=== PATIENT | female | born 1955 | race Caucasian/White ===

== ENCOUNTER 2016-08-19 08:56 | Emergency (ER) | payer MEDICARE, OTHER ==
[2016-08-19 09:15] VITALS: BP 117/52
--- NOTE | 2016-08-19 09:16 | ED Physician Documentation ---
General Adult - HISTORIAN Historian: patient - HPI Stated Complaint: cogh Chief Complaint: General Adult Onset: days ago (7) Timing: still present Severity: moderate Further Comments: yes (Pt is a 60 yo female with cough x 1 week. Pt had fever several days ago. Cough is productive. No ear pain.) - ROS CONST: chills, other (malaise) EYES/ENT: sore throat CVS/RESP: cough GI/: none MS/SKIN/LYMPH: none - PAST HX Past History: other (Depression, Thyroid dz) Surgeries/Procedures: hysterectomy, other (orthopedic) Allergies/Adverse Reactions: Allergies Allergy/AdvReac Type Severity Reaction Status Date / Time Penicillins Allergy Severe Anaphylaxis Verified 08/19/16 09:09 Sulfa (Sulfonamide Allergy Intermediate Rash Verified 08/19/16 09:09 Antibiotics) Home Medications: Ambulatory Orders Medication Instructions Recorded Levothyroxine Sodium [Synthroid] 100 mcg PO D 06/30/16 Sertraline HCl [Zoloft] 100 mg PO D 06/30/16 Zolpidem Tartrate [Ambien] 10 mg PO PRN PRN 06/30/16 - SOCIAL HX Smoking History: cigarettes - FAMILY HX Family History: No - VITAL SIGNS Vital Signs: Vital Signs Temp Pulse Resp BP Pulse Ox 94/62 06/30/16 11:14 - REVIEWED ASSESSMENTS Nursing Assessment Reviewed: Yes Vitals Reviewed: Yes Progress - Progress Progress: Rapid strep - pos Inf A & B - neg Azithromycin 500 mg po in ER Rx Azithromycin 250 mg po qd x next 5 days. Rx Robitussin AC. 10 ml po q 4-6h prn. Disp 240 cc. ED Results Lab/Radiology - Orders Orders: ED Orders Category Date Time Status CHEST 2 VIEW [CHEST P.A.&LAT 2 VIEWS] [RAD] Stat Exams 08/19/16 Ordered GRP A STREP SCREEN Stat Lab 08/19/16 Ordered INFLUENZA A&B Stat Lab 08/19/16 Uncollected General Adult Physical Exam - PHYSICAL EXAM GENERAL APPEARANCE: mild distress EENT: TM's nml, pharyngeal erythema NECK: normal inspection, supple RESPIRATORY: no resp distress, chest non-tender, breath sounds normal, other ( cough) CVS: reg rate & rhythm, heart sounds normal ABDOMEN: soft, no organomegaly, normal bowel sounds BACK: normal inspection, no CVA tenderness SKIN: warm/dry, normal color EXTREMITIES: non-tender, normal range of motion, no evidence of injury NEURO: oriented X3, motor nml, sensation nml Discharge Clincal Impression: Cough, Strep pharyngitis Referrals: Angie Medel MD [Primary Care Provider] - Home Medications: Ambulatory Orders Levothyroxine Sodium [Synthroid] 100 mcg PO D 06/30/16 Sertraline HCl [Zoloft] 100 mg PO D 06/30/16 Zolpidem Tartrate [Ambien] 10 mg PO PRN PRN 06/30/16 Condition: Good Disposition: 01 HOME, SELF-CARE Decision to Admit: NO Decision Time: 09:44
[2016-08-19] MEDS ORDERED: AZITHROMYCIN 250 MG TABLET PO ONE (09:42)
--- NOTE | 2016-08-19 09:53 | Diagnostic Imaging Report ---
[facility] [address] [facility].[address] 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 Findings: Examination of the chest in PA and lateral views with comparison to examination of 03/14/2015 demonstrates the lungs to be hyperinflated but clear. Cardiac silhouette is prominent and the aorta is atherosclerotic. Mild degenerative changes are seen in the thoracic vertebrae. Impression: 1. Hyperinflation. 2. Cardiomegaly and aortic atherosclerosis. 3. No active disease. Electronically signed on Aug 19, 2016 9:33:50 AM WELL DRILL OPERATOR CABLE TOOL by: Stanley AMADOR
== END 2016-08-19 09:53 | disposition home or self-care (01) ==
LOC: ED 08:56
DX: J02.0 Streptococcal pharyngitis (principal); R05 Cough
CPT/HCPCS: 71020; 87400; 87880; 99283

== ENCOUNTER 2017-05-18 09:10 | Emergency (ER) | payer MEDICARE, OTHER ==
--- NOTE | 2017-05-18 09:26 | ED Physician Documentation ---
Upper Respiratory Symptoms - HISTORIAN Historian: patient - HPI Stated Complaint: cough histroy of COPD Chief Complaint: Cough/ Upper Respiratory Onset: other (over a week ) Duration: constant Context: denies: recent foreign travel, insect bite(s), tick(s), recent chemotherapy, multiple patients Severity: moderate Associated Symptoms: fever, chills, sweating, runny nose, sinus pain, sinus drainage, sore throat, chest pain, productive cough, shortness of breath, hurts to breathe. denies: earache, hoarseness, allergy, headache Worsened by Deep Breath: Yes Further Comments: no - ROS CONST/EYES: denies: weakness, eye redness, eye itching CVS/RESP: chest pain, shortness of breath. denies: palpitations LYMPH: denies: leg swelling, swollen glands, ankle swelling GI/: denies: abdominal pain, problems urinating NEURO/PSYCH: dizziness (with continued cough ). denies: fainting - PAST HX Lung Disease: COPD PE Risk Factors: denies: hypertension, hx DVT, cast, cancer, recent surgery, leg swelling, bedridden, paralysis, hx of PE Other History: other (hypothyroidism ) Surgeries/Procedures: other ("10") Immunizations: referred to PCP Allergies/Adverse Reactions: Allergies Allergy/AdvReac Type Severity Reaction Status Date / Time Penicillins Allergy Severe Anaphylaxis Verified 05/18/17 09:32 Sulfa (Sulfonamide Allergy Intermediate Rash Verified 05/18/17 09:32 Antibiotics) Home Medications: Ambulatory Orders Medication Instructions Recorded Levothyroxine Sodium [Synthroid] 100 mcg PO D 06/30/16 Sertraline HCl [Zoloft] 100 mg PO D 06/30/16 Zolpidem Tartrate [Ambien] 10 mg PO PRN PRN 06/30/16 Azithromycin [Zithromax] 250 mg PO DAILY 5 Days #6 tablet 05/18/17 Methylprednisolone [Medrol] 4 mg PO 1T 6 Days #1 tab.ds.pk 05/18/17 - SOCIAL HX Smoking History: cigarettes Alcohol Use: none Drug Use: none - FAMILY HX Family History: none - VITAL SIGNS Vital Signs: Vital Signs Temp Pulse Resp BP Pulse Ox 98.1 F 62 19 98/61 93 05/18/17 09:21 05/18/17 10:35 05/18/17 10:35 05/18/17 10:35 05/18/17 10:35 - REVIEWED ASSESSMENTS Nursing Assessment Reviewed: Yes Vitals Reviewed: Yes ED Results Lab/Radiology - Lab Results Lab Results: Lab Results 05/18/17 05/18/17 10:02 10:02 WBC 7.70 K/ul K/ul (4.00-12.00) RBC 4.69 M/ul M/ul (3.90-5.20) Hgb 13.5 g/dL g/dL (12.0-16.0) Hct 41.8 % % (34.5-46.5) MCV 89.2 fl fl (80.0-100.0) MCH 28.7 pg pg (28.0-34.0) MCHC 32.2 g/dL g/dL (30.0-36.0) RDW 13.4 % % (11.3-14.3) Plt Count 205 K/mm3 K/mm3 (130-400) Neut % (Auto) 64.5 % % (39.0-79.0) Lymph % (Auto) 25.0 % % (16.0-50.0) [place] % (Auto) 6.2 % % (0.0-11.0) Eos % (Auto) 2.2 % % (0.0-6.8) Baso % (Auto) 0.5 (0.0-1.5) Neut # (Auto) 5.0 # k/uL # k/uL (1.4-7.7) Lymph # (Auto) 1.9 # k/uL # k/uL (0.6-4.0) [place] # (Auto) 0.5 # k/uL # k/uL (0.0-0.9) Eos # (Auto) 0.2 # k/uL # k/uL (0.0-0.6) Baso # (Auto) 0.0 # k/uL # k/uL (0.0-0.5) Reactive Lymphs % 1.6 % % (0.0-5.0) Reactive Lymphs # 0.1 # k/uL # k/uL (0.0-0.8) Sodium 140 mmol/L mmol/L (137-145) Potassium 3.4 mmol/L L mmol/L (3.5-5.1) Chloride 103 mmol/L mmol/L (98-107) Carbon Dioxide 30 mmol/L mmol/L (22-30) BUN 7 mg/dL mg/dL (7-17) Creatinine 0.70 mg/dL mg/dL (0.52-1.04) Estimated Creat Clear 113 Est GFR ( Amer) > 60 (60 - ) Est GFR (Non-Af Amer) > 60 (60 - ) Glucose 85 mg/dL mg/dL (74-106) Calcium 9.0 mg/dL mg/dL (8.4-10.2) Total Bilirubin 0.3 mg/dL mg/dL (0.2-1.3) AST 13 U/L L U/L (15-46) ALT 18 U/L U/L (13-69) Alkaline Phosphatase 95 U/L U/L (38-126) Total Protein 7.4 g/dL g/dL (6.3-8.2) Albumin 3.7 g/dL g/dL (3.5-5.0) - Radiology Radiology Impressions: Chest 2 views History: Productive cough. Smoker. Findings: Calcified granulomas and aortic atherosclerosis are observed. The lungs are hyperinflated without infiltrate or pleural effusion. Heart size is normal. Osseous structures are intact. Central pulmonary artery enlargement is present. Impression: Chronic obstructive pulmonary disease, probable pulmonary hypertension, and atherosclerosis. Electronically signed on May 18, 2017 9:51:14 AM CDT by: Yuan Gonzales - Orders Orders: ED Orders Category Date Time Status Place IV Lock 1T Care 05/18/17 09:27 Active CHEST P.A.&LAT 2 VIEWS [RAD] Stat Exams 05/18/17 Taken CBC/PLATELET/DIFF Routine Lab 05/18/17 10:02 Completed CMP [CMP] Routine Lab 05/18/17 10:02 Completed Ipratropium/Albuterol Sulfate [Duoneb] Med 05/18/17 09:27 Discontinued 3 ml NEB NOW ONE methylPREDNISolone SOD SUCC [Solu-MEDROL] Med 05/18/17 09:28 Discontinued 125 mg IVP NOW ONE Upper Respiratory Symptoms - EXAM General Appearance: no acute distress EENT: eyes nml inspection, nml ENT inspection Neck: normal inspection, thyroid normal Respiratory: decreased air movement, wheezes, resp. fatigue. No: speaks full sentences Abdomen: non-tender, no organomegaly, nml bowel sounds CVS: reg rate & rhythm, heart sounds normal, equal pulses, no murmur Skin: color nml, no rash, warm,dry Extremities: non-tender, normal range of motion, no evidence of injury Neuro/Psych: oriented x3, neuro intact, mood/affect nml. No: disoriented Discharge Clincal Impression: COPD (chronic obstructive pulmonary disease) with acute bronchitis Prescriptions: Azithromycin [Zithromax] 250 mg PO DAILY 5 Days #6 tablet Methylprednisolone [Medrol] 4 mg PO 1T 6 Days #1 tab.ds.pk Referrals: Angie Medel MD [Primary Care Provider] - 2 Days Condition: Stable Disposition: 01 HOME, SELF-CARE Decision to Admit: NO Date of Decison to Admit: 05/18/17 Decision Time: 10:58
[2017-05-18] MEDS ORDERED: IPRATROPIUM/ALBUTEROL SULFATE 3 ML AMPUL.NEB NEB ONE (09:27)
[2017-05-18] MEDS ORDERED: methylPREDNISolone SOD SUCC 125 MG/2 ML VIAL IVP ONE (09:28)
[2017-05-18 10:07] LABS: BASOPHILS % 0.5 (0.0-1.5); EOSINOPHILS % 2.2 % (0.0-6.8); MEAN CORPUSCULAR HEMOGLOBIN 28.7 pg (28.0-34.0); MEAN CORPUSCULAR VOLUME 89.2 fl (80.0-100.0); MONOCYTES % 6.2 % (0.0-11.0)
[2017-05-18 10:28] LABS: eGFR (African) > 60; eGFR (Non-African) > 60
[2017-05-18 10:41] VITALS: BP 98/61
--- NOTE | 2017-05-18 11:07 | Diagnostic Imaging Report ---
[facility] [address] [address] Report Submission Date: May 18, 2017 9:51:14 AM CDT Patient Study Name: NICO BHAGAT Date: May 18, 2017 9:39:02 AM CDT Modality Type: CR Gender: F Description: CHEST : 55 Institution: [facility] Physician: ORTEGA CORMIER - ER Chest 2 views History: Productive cough. Smoker. Findings: Calcified granulomas and aortic atherosclerosis are observed. The lungs are hyperinflated without infiltrate or pleural effusion. Heart size is normal. Osseous structures are intact. Central pulmonary artery enlargement is present. Impression: Chronic obstructive pulmonary disease, probable pulmonary hypertension, and atherosclerosis. Electronically signed on May 18, 2017 9:51:14 AM CDT by: Yuan AMADOR
== END 2017-05-18 10:35 | disposition home or self-care (01) ==
LOC: ED 09:10
DX: J44.9 Chronic obstructive pulmonary disease, unspecified (principal); J20.9 Acute bronchitis, unspecified
CPT/HCPCS: 71020; 80053; 85025; J2930; 96374; 99283; S1016

== ENCOUNTER 2017-06-07 18:03 | Emergency (ER) | payer MEDICARE, OTHER ==
--- NOTE | 2017-06-07 19:25 | ED Physician Documentation ---
General Adult - HISTORIAN Historian: patient - HPI Stated Complaint: Headache Chief Complaint: General Adult Onset: days ago (1) Timing: still present Severity: moderate Further Comments: yes (Pt is a 61 yo female with hx of migraine headaches who has a migraine headache that began yesterday. Pt has had aura. Headache is similar to previous migraines. Pt has had nausea, photophobia. Pt has taken Tylenol, Ibuprofen at home, last at 2 pm.) - ROS CONST: no problems EYES/ENT: other (flashing lights, migraine aura) CVS/RESP: none GI/: nausea MS/SKIN/LYMPH: none NEURO/PSYCH: headache - PAST HX Past History: hypertension, other (GERD, Thyroid d/o, migraine [place]EL[place].) Allergies/Adverse Reactions: Allergies Allergy/AdvReac Type Severity Reaction Status Date / Time Penicillins Allergy Severe Anaphylaxis Verified 06/07/17 18:19 Sulfa (Sulfonamide Allergy Intermediate Rash Verified 06/07/17 18:19 Antibiotics) Home Medications: Ambulatory Orders Medication Instructions Recorded Levothyroxine Sodium [Synthroid] 100 mcg PO D 06/30/16 Sertraline HCl [Zoloft] 100 mg PO D 06/30/16 Zolpidem Tartrate [Ambien] 10 mg PO PRN PRN 06/30/16 Albuterol Sulfate [ProAir 1 puff INH DAILY 06/07/17 RespiClick] Alprazolam [Xanax] 0.25 mg PO 06/07/17 Fluticasone Furoate [Arnuity 06/07/17 Ellipta] Pantoprazole Sodium [Protonix] 40 mg PO 0700 06/07/17 - SOCIAL HX Smoking History: cigarettes - FAMILY HX Family History: No - VITAL SIGNS Vital Signs: Vital Signs Temp Pulse Resp BP Pulse Ox 97 F L 77 16 115/68 96 06/07/17 18:05 06/07/17 18:05 06/07/17 18:05 06/07/17 18:05 06/07/17 18:05 - REVIEWED ASSESSMENTS Nursing Assessment Reviewed: Yes Vitals Reviewed: Yes Progress - Progress Progress: NS 1 L IVF Benadryl 25 mg IV Toradol 30 mg IV no improvement Nubain 10 mg Iv much improved ED Results Lab/Radiology - Orders Orders: ED Orders Category Date Time Status Place IV Lock 1T Care 06/07/17 19:23 Ordered Ketorolac Tromethamine [Toradol] Med 06/07/17 19:22 Once 30 mg IVP NOW ONE NORMAL SALINE @ 1000 MLS/HR ( 1000ml BOLUS) Med 06/07/17 19:23 Ordered 0.9 % Sodium Chloride [Normal Saline] 1,000 ml IV Q1H diphenhydrAMINE HCL [Benadryl] Med 06/07/17 19:23 Once 25 mg IVP NOW ONE General Adult Physical Exam - PHYSICAL EXAM GENERAL APPEARANCE: moderate distress EENT: eye inspection normal, pharynx normal NECK: normal inspection, supple RESPIRATORY: no resp distress, chest non-tender, breath sounds normal CVS: reg rate & rhythm, heart sounds normal, equal pulses ABDOMEN: soft, no organomegaly, normal bowel sounds BACK: normal inspection SKIN: warm/dry, normal color EXTREMITIES: non-tender, normal range of motion, no evidence of injury NEURO: oriented X3, CN's nml as tested, motor nml, sensation nml Discharge Clincal Impression: Migraine Qualifiers: Migraine type: with aura Status migrainosus presence: without status migrainosus Intractability: not intractable Qualified Code(s): G43.109 - Migraine with aura, not intractable, without status migrainosus Referrals: Angie Medel MD [Primary Care Provider] - 2 Days Condition: Good Disposition: 01 HOME, SELF-CARE Decision to Admit: NO Decision Time: 20:34
[2017-06-07] MEDS: 0.9 % SODIUM CHLORIDE 1,000 ML IV ONE (19:45)
[2017-06-07] MEDS: diphenhydrAMINE HCL 50 MG/ML VIAL IVP ONE (19:50)
[2017-06-07] MEDS: KETOROLAC TROMETHAMINE 30 MG/1ML VIAL IVP ONE (19:50)
[2017-06-07] MEDS: NALBUPHINE HCL 10 MG/1 ML IVP ONE (20:20)
[2017-06-07 21:00] VITALS: BP 110/59
== END 2017-06-07 20:40 | disposition home or self-care (01) ==
LOC: ED 18:03
DX: G43.109 Migraine with aura, not intractable, without status migrainosus (principal)
CPT/HCPCS: J1200; J1885; J2300; J7030; 96361; 96374; 96375; 99283; S1016

== ENCOUNTER 2017-06-21 17:59 | Emergency (ER) | payer MEDICARE, OTHER ==
--- NOTE | 2017-06-21 18:21 | ED Physician Documentation ---
Headache - HISTORIAN Historian: patient - HPI Stated Complaint: headache Chief Complaint: Headache Onset: hours (5) Timing: other (states she has had increase in her migraines over last few months this one started today ) Severity: moderate Quality: similar to previous Associated Symptoms: problems with vision, sensitivity to light. denies: fever , chills, stiffness, speech problems, tingling, numbness, dizziness Preceding Symptoms: denies: visual disturbance Exacerbated By: light, noise, movement, position Further Comments: no Last known Well Date: 06/20/17 Last Known Well Time: 08:00 Last known Well Code/Unknown Code: Unknown - ROS NEURO/PSYCH: denies: confusion, anxiety, depression, fainting EYES/ENT: denies: sore throat, difficulty swallowing CVS/RESP: denies: chest pain, shortness of breath, cough GI/: denies: abdominal pain, diarrhea, problems urinating MS/SKIN/LYMPH: denies: muscle aches, back pain - PAST HX Medical History: other (COPD, hypothryiodism, GERD, Depression ) Surgical History: cholecystectomy, other (hysterectomy ) Immunizations: referred to PCP - SOCIAL HX Smoking History: cigarettes - Family HX Family History: none - REVIEWED ASSESSMENTS Nursing Assessment Reviewed: Yes Vitals Reviewed: Yes <Hattie Calzada - Last Filed: 06/21/17 18:29> <XU HERRERA - Last Filed: 06/21/17 19:51> - PAST HX Allergies/Adverse Reactions: Allergies Allergy/AdvReac Type Severity Reaction Status Date / Time Penicillins Allergy Severe Anaphylaxis Verified 06/07/17 18:19 Sulfa (Sulfonamide Allergy Intermediate Rash Verified 06/07/17 18:19 Antibiotics) Home Medications: Ambulatory Orders Medication Instructions Recorded Levothyroxine Sodium [Synthroid] 100 mcg PO D 06/30/16 Sertraline HCl [Zoloft] 100 mg PO D 06/30/16 Zolpidem Tartrate [Ambien] 10 mg PO PRN PRN 06/30/16 Albuterol Sulfate [ProAir 1 puff INH DAILY 06/07/17 RespiClick] Alprazolam [Xanax] 0.25 mg PO 06/07/17 Fluticasone Furoate [Arnuity 06/07/17 Ellipta] Pantoprazole Sodium [Protonix] 40 mg PO 0700 06/07/17 Ondansetron HCl Rapdis [Zofran Odt] 4 mg PO Q6 PRN #30 tab 06/21/17 - VITAL SIGNS Vital Signs: Vital Signs Temp Pulse Resp BP Pulse Ox 108/52 90 L 06/21/17 17:59 06/21/17 17:59 - Orders Orders: ED Orders Category Date Time Status Place IV Lock 1T Care 06/21/17 18:21 Active 0.9 % Sodium Chloride [Normal Saline] 1,000 ml Med 06/21/17 18:22 Discontinued IV Q1H Ketorolac Tromethamine [Toradol] Med 06/21/17 19:11 Discontinued 30 mg .ROUTE .STK-MED ONE Ketorolac Tromethamine [Toradol] Med 06/21/17 19:08 Discontinued 30 mg IVP NOW ONE Promethazine HCl [Phenergan] Med 06/21/17 19:11 Discontinued 25 mg .ROUTE .STK-MED ONE Promethazine HCl [Phenergan] Med 06/21/17 19:08 Discontinued 25 mg IM NOW ONE diphenhydrAMINE HCL [Benadryl] Med 06/21/17 19:08 Discontinued 25 mg IVP NOW ONE Headache Physical Exam - EXAM General Appearance: no acute distress EENT: no facial swelling, eyes nml inspection, PERRL Respiratory: no resp distress, chest non-tender, breath sounds normal CVS: reg. rate & rhythm, heart sounds nml Abdomen: non-tender, no organomegaly, nml bowel sounds, no distention Skin: color nml, no rash Extremitites: non-tender, normal range of motion - NEURO/PSYCH Higher Functions: alert, oriented x3, nml speech, mood/affect nml Cranial: nml as tested Cerebellar: nml as tested Sensorimotor: motor nml <Hattie Calzada - Last Filed: 06/21/17 18:29> Discharge <Hattie Calzada - Last Filed: 06/21/17 18:29> Decision to Admit: NO Decision Time: 19:51 <XU HERRERA - Last Filed: 06/21/17 19:51> Clincal Impression: Migraine Qualifiers: Migraine type: without aura Status migrainosus presence: without status migrainosus Intractability: not intractable Qualified Code(s): G43.009 - Migraine without aura, not intractable, without status migrainosus Prescriptions: Ondansetron HCl Rapdis [Zofran Odt] 4 mg PO Q6 PRN #30 tab PRN Reason: Nausea / Vomiting Referrals: Angie Medel MD [Primary Care Provider] - 2 Days Additional Instructions: Rest in a cool dark room. Make an appointment with your primary care doctor for headache evaluation and treatment. Condition: Stable
[2017-06-21] MEDS ORDERED: 0.9 % SODIUM CHLORIDE 1,000 ML IV ONE (18:22)
[2017-06-21] MEDS ORDERED: KETOROLAC TROMETHAMINE 30 MG/1ML VIAL IVP ONE (19:08)
[2017-06-21] MEDS ORDERED: diphenhydrAMINE HCL 50 MG/ML VIAL IVP ONE (19:08)
[2017-06-21] MEDS ORDERED: PROMETHAZINE HCL 25 MG/ML VIAL IM ONE (19:08)
[2017-06-21] MEDS ORDERED: KETOROLAC TROMETHAMINE 30 MG/1ML VIAL ONE (19:11)
[2017-06-21] MEDS ORDERED: PROMETHAZINE HCL 25 MG/ML VIAL ONE (19:11)
[2017-06-21 20:44] VITALS: BP 108/43
== END 2017-06-21 20:01 ==
LOC: ED 17:59
DX: G43.909 Migraine, unspecified, not intractable, without status migrainosus (principal)
CPT/HCPCS: J1200; J1885; J2550; J7030; 96361; 96372; 96374; 96375; 99283

== ENCOUNTER 2017-11-02 20:04 | Emergency (ER) | payer MEDICARE, OTHER ==
[2017-11-02] MEDS ORDERED: ONDANSETRON HCL/PF 4 MG/ 2ML VIAL IVP ONE (20:17)
--- NOTE | 2017-11-02 20:20 | ED Physician Documentation ---
Sore Throat/Dental Pain - HISTORIAN Historian: patient - HPI Stated Complaint: left ear pain and sore throat Chief Complaint: Earache Onset: days ago (3) Context: denies: Foreign Body, Fractured Tooth Associated Symptoms: fever, chills, sore throat, moderate, L ear pain, cough Worsened By: nothing Further Comments: yes (left ear pain with sore throat starting 3 days ago. She is not sure if she has a fever. She has had chills . She is taking Ibuprofen and tylenol due to the pain. she has pain with swallowing and ear pain . She feels like her ear is going to "explode" . No rash. No sick contacts that she is aware of. The OTC meds do help mildly. No chest pain) - ROS CONST: recent illness CVS/RESP: denies: chest pain, shortness of breath, palpitations GI/: denies: nausea, vomiting MS/SKIN/LYMPH: denies: rash NEURO/PSYCH: headache - PAST HX Past History: other (migraines, COPD, anxiety ) Other History: none Immunizations: UTD Allergies/Adverse Reactions: Allergies Allergy/AdvReac Type Severity Reaction Status Date / Time Penicillins Allergy Severe Anaphylaxis Verified 11/02/17 20:25 Sulfa (Sulfonamide Allergy Intermediate Rash Verified 11/02/17 20:25 Antibiotics) Home Medications: Ambulatory Orders Medication Instructions Recorded Levothyroxine Sodium [Synthroid] 0.125 mcg PO D 06/30/16 Sertraline HCl [Zoloft] 100 mg PO D 06/30/16 Zolpidem Tartrate [Ambien] 10 mg PO PRN PRN 06/30/16 Albuterol Sulfate [ProAir 1 puff INH DAILY 06/07/17 RespiClick] Alprazolam [Xanax] 0.25 mg PO DIRECTED 06/07/17 Fluticasone Furoate [Arnuity 100 mcg PO D 06/07/17 Ellipta] Ondansetron HCl Rapdis [Zofran Odt] 4 mg PO Q6 PRN #30 tab 06/21/17 - SOCIAL HX Smoking History: quit greater than 1 year Alcohol Use: none Drug Use: none - FAMILY HX Family History: No - VITAL SIGNS Vital Signs: Vital Signs Temp Pulse Resp BP Pulse Ox 97.8 F 63 18 103/62 96 11/02/17 20:11 11/02/17 20:11 11/02/17 20:11 11/02/17 20:11 11/02/17 20:11 - REVIEWED ASSESSMENTS Nursing Assessment Reviewed: Yes Vitals Reviewed: Yes Progress - Progress Progress: 2044: slight improvement of pain. She is aware of results and is agreeable to plan DG ED Results Lab/Radiology - Orders Orders: ED Orders Category Date Time Status Rapid Strep [GRP A STREP SCREEN] Stat Lab 11/02/17 Ordered Azithromycin [Zithromax] Med 11/02/17 21:02 Discontinued 500 mg PO NOW ONE Ketorolac Tromethamine [Toradol] Med 11/02/17 20:25 Discontinued 60 mg IM NOW ONE Ondansetron HCl/Pf [Zofran 4 mg/2 ml] Med 11/02/17 20:17 Discontinued 4 mg IVP NOW ONE methylPREDNISolone ACETATE [Depo-Medrol] Med 11/02/17 20:26 Discontinued 40 mg IM NOW ONE Sore throat Physical Exam - EXAM General Appearance: no acute distress, alert Head/Neck: head nml inspection, cervical lymphadenopathy (left ). No: facial erythema, stiff neck Eyes: eyes nml inspection Mouth/Throat: lips nml, gums nml, no air way problems, pharyngeal erythema. No : uvular shift Ear/Nose: TM erythema (left ear ) Respiratory: no resp. distress, breath sounds nml, respiratory distress CVS: reg. rate & rhythm, heart sounds nml Abdomen: soft Extremities: non-tender, nml ROM Skin: warm/dry, normal color Neuro/Psych: oriented x3, mood/affect nml Discharge Clincal Impression: Strep pharyngitis Referrals: Angie Medel MD [Primary Care Provider] - 2 Days Comments: 1. azithromycin (zpack) 500 mg in ER - 250 mg daily at home x 4 2. Medrol dose pack - as directed starting tomorrow 3. Tylenol / Ibuprofen as needed for pain or fever 4. Increase fluids 5. See PCP in 2-4 days 6. Return to ER for increasing symptoms Condition: Stable Disposition: 01 HOME, SELF-CARE Decision to Admit: NO Date of Decison to Admit: 11/02/17 Decision Time: 21:06
[2017-11-02] MEDS ORDERED: KETOROLAC TROMETHAMINE 60 MG/2 ML VIAL IM ONE (20:25)
[2017-11-02] MEDS ORDERED: methylPREDNISolone ACETATE 40 MG/ML VIAL IM ONE (20:26)
[2017-11-02] MEDS ORDERED: AZITHROMYCIN 250 MG TABLET PO ONE (21:02)
[2017-11-02 22:41] VITALS: BP 116/78
== END 2017-11-02 21:15 | disposition home or self-care (01) ==
LOC: ED 20:04
DX: J02.0 Streptococcal pharyngitis (principal)
CPT/HCPCS: 87880; J1030; J1885; 96372; 99283

== ENCOUNTER 2018-03-20 18:36 | Emergency (ER) | payer MEDICARE, OTHER ==
--- NOTE | 2018-03-20 19:07 | ED Physician Documentation ---
General Adult - HISTORIAN Historian: patient - HPI Stated Complaint: Tachycardia Chief Complaint: General Adult Additional Information: Hasn't felt good for a week. Has recurring SKELTON's across top of head that are throbbing. Sometimes she has tingling L face if SKELTON is bad. She feels like her heart is racing (100-120) and she gets short of breath. BP this evening was 137/85. Sometimes feels like her balance/equilibrium is off. Says he saw her doctor last week but can't remember why. Thinks she may have seen her doctor this week as well and is supposed to see her again tomorrow. Thinks she is having difficulty with memory. Says she had recent carotid studies that showed narrowing and that she is "almost" ready for surgery. Anxiety in the past but it didn't feel like this. - ROS CONST: no problems CVS/RESP: shortness of breath. denies: chest pain GI/: denies: problems urinating NEURO/PSYCH: headache - PAST HX Past History: other (above) Surgeries/Procedures: cholecystectomy Allergies/Adverse Reactions: Allergies Allergy/AdvReac Type Severity Reaction Status Date / Time Penicillins Allergy Severe Anaphylaxis Verified 03/20/18 18:54 Sulfa (Sulfonamide Allergy Intermediate Rash Verified 03/20/18 18:54 Antibiotics) Home Medications: Ambulatory Orders Medication Instructions Recorded Levothyroxine Sodium [Synthroid] 0.125 mcg PO D 06/30/16 Sertraline HCl [Zoloft] 100 mg PO D 06/30/16 Zolpidem Tartrate [Ambien] 10 mg PO PRN PRN 06/30/16 Albuterol Sulfate [ProAir 1 puff INH DAILY 06/07/17 RespiClick] Alprazolam [Xanax] 0.25 mg PO DIRECTED 06/07/17 Fluticasone Furoate [Arnuity 100 mcg PO D 06/07/17 Ellipta] Hydrochlorothiazide 1 tab PO BID 03/20/18 Potassium Chloride [Klor-Con M20] 1 tab PO BID 03/20/18 - SOCIAL HX Smoking History: cigarettes (quit 8 months ago) - FAMILY HX Family History: Yes (heart, cancer) - VITAL SIGNS Vital Signs: Vital Signs Temp Pulse Resp BP Pulse Ox 97.4 F L 91 H 16 131/80 93 03/20/18 18:36 03/20/18 18:36 03/20/18 18:36 03/20/18 18:36 03/20/18 18:36 - REVIEWED ASSESSMENTS Nursing Assessment Reviewed: Yes Vitals Reviewed: Yes Progress - Progress Progress: EKG: sinus rhythm, 88 BPM, no ischemic changes Report Submission Date: Mar 20, 2018 7:54:10 PM CDT Patient Study Name: NICO BHAGAT Date: Mar 20, 2018 7:17:04 PM CDT Modality Type: CT Gender: F Description: CT BRAIN W/O CONTRAST : 55 Institution: [facility] Physician: TIFF ASHBY - ER CT head History: HEADACHE, DIZZINESS, SHORT OF BREATH X 2-3 DAYS. PT STATES "DOESN'T FEEL LIKE MYSELF". HX OF TIA X 2 (Hx) / ITS.REASON SKELTON x1 week, tingling L face when SKELTON bad (DICOM Hx) / ITS.REASON SOB No prior comparison studies No evidence of acute intracranial hemorrhage. No midline shift. 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 Asymmetric lateral ventricles with the left being larger than the right. The paranasal air sinuses and mastoid air cells are well aerated. Impression: 1. No evidence of acute intracranial hemorrhage. No midline shift. 2. 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 Consider MR as needed. Electronically signed on Mar 20, 2018 7:54:10 PM CDT by: Nadia Johnson Report Submission Date: Mar 20, 2018 8:06:02 PM CDT Patient Study Name: NICO BHAGAT Date: Mar 20, 2018 7:17:26 PM CDT Modality Type: DX Gender: F Description: CHEST : 55 Institution: [facility] Physician: TIFF ASHBY A single frontal view of the chest History: HEADACHE, DIZZINESS, SHORT OF BREATH X 2-3 DAYS. PT STATES "DOESN'T FEEL LIKE MYSELF". HX OF TIA X 2 (Hx) / ITS.REASON SOB (DICOM Hx) / ITS.REASON SOB (Pt comments) No comparison studies Heart is normal in size. Aortic calcification is present. Diffuse interstitial prominence is noted. Bibasilar haziness is seen. No pleural effusion or pneumothorax. No acute osseous pathology. Right upper lung scarring and nodularity is noted. Impression: 1. Bibasilar haziness may be due to pulmonary edema/ airspace disease. 2. Right upper lobe minimal scarring and 4 mm nodular lesion, please compare with prior studies to assess stability. Electronically signed on Mar 20, 2018 8:06:02 PM CDT by: Nadia Johnson The calcified lung granuloma was seen on 2014 CXR. ED Results Lab/Radiology - Orders Orders: ED Orders Category Date Time Status Continuous EKG monitoring Q1H Care 03/20/18 18:[address] IV Lock 1T Care 03/20/18 18:48 Ordered CHEST 1VIEW [RAD] Stat Exams 03/20/18 Ordered CBC/PLATELET/DIFF Routine Lab 03/20/18 Ordered CMP Routine Lab 03/20/18 Ordered TROPONIN I (cTnI) Stat Lab 03/20/18 Ordered URINALYSIS Routine Lab 03/20/18 Ordered EKG WITH COMPARISON Stat Ther 03/20/18 Ordered General Adult Physical Exam - PHYSICAL EXAM GENERAL APPEARANCE: mild distress (anxious) EENT: eye inspection normal, ENT inspection normal, pharynx normal, no nystagmus NECK: normal inspection, supple (non tender) RESPIRATORY: other (resp rate 20+, slows when engaged in conversation. Speaks in full sentences) CVS: reg rate & rhythm, heart sounds normal ABDOMEN: normal bowel sounds, no abdominal bruit, non-tender BACK: normal inspection, no CVA tenderness SKIN: warm/dry, normal color EXTREMITIES: normal range of motion (gait and stance), no evidence of injury NEURO: CN's nml as tested, motor nml, sensation nml, other (see HPI. Poor memory) Discharge Clincal Impression: Malaise Headache Qualifiers: Headache type: unspecified Headache chronicity pattern: chronic headache Intractability: not intractable Qualified Code(s): R51 - Headache Referrals: Angie Medel MD [Primary Care Provider] - 2 Days Additional Instructions: Your lab results and radiologic study results were reassuring. Keep your appointment with Dr. Medel tomorrow. Return to the ER if your condition worsens. Condition: Good Disposition: 01 HOME, SELF-CARE Decision to Admit: NO Decision Time: 20:50
[2018-03-20 19:24] LABS: BASOPHILS % 0.7 (0.0-1.5); EOSINOPHILS % 1.8 % (0.0-6.8); MEAN CORPUSCULAR HEMOGLOBIN 28.9 pg (28.0-34.0); MONOCYTES % 5.3 % (0.0-11.0); NEUTROPHILS # 6.1 # k/uL (1.4-7.7)
[2018-03-20 20:41] LABS: eGFR (African) > 60; eGFR (Non-African) > 60
[2018-03-20 21:02] VITALS: BP 125/81
--- NOTE | 2018-03-20 21:11 | Diagnostic Imaging Report ---
TIFF ASHBY [facility] [address] [facility] [address] [place], [place]. [address] Report Submission Date: Mar 20, 2018 7:54:10 PM CDT Patient Study Name: NICO BHAGAT Date: Mar 20, 2018 7:17:04 PM CDT Modality Type: CT Gender: F Description: CT BRAIN W/O CONTRAST : 55 Institution: [facility] Physician: TIFF ASHBY CT head History: HEADACHE, DIZZINESS, SHORT OF BREATH X 2-3 DAYS. PT STATES "DOESN'T FEEL LIKE MYSELF". HX OF TIA X 2 (Hx) / ITS.REASON SKELTON x1 week, tingling L face when SKELTON bad (DICOM Hx) / ITS.REASON SOB No prior comparison studies No evidence of acute intracranial hemorrhage. No midline shift. 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 Asymmetric lateral ventricles with the left being larger than the right. The paranasal air sinuses and mastoid air cells are well aerated. Impression: 1. No evidence of acute intracranial hemorrhage. No midline shift. 2. 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 Consider MR as needed. Electronically signed on Mar 20, 2018 7:54:10 PM CDT by: Nadia AMADOR
--- NOTE | 2018-03-20 21:12 | Diagnostic Imaging Report ---
TIFF ASHBY [facility] [address] [facility] [address] [place] [address]. [id number] Report Submission Date: Mar 20, 2018 8:06:02 PM CDT Patient Study Name: NICO BHAGAT Date: Mar 20, 2018 7:17:26 PM CDT Modality Type: DX Gender: F Description: CHEST : 55 Institution: [facility] Physician: TIFF ASHBY A single frontal view of the chest History: HEADACHE, DIZZINESS, SHORT OF BREATH X 2-3 DAYS. PT STATES "DOESN'T FEEL LIKE MYSELF". HX OF TIA X 2 (Hx) / ITS.REASON SOB (DICOM Hx) / ITS.REASON SOB (Pt comments) No comparison studies Heart is normal in size. Aortic calcification is present. Diffuse interstitial prominence is noted. Bibasilar haziness is seen. No pleural effusion or pneumothorax. No acute osseous pathology. Right upper lung scarring and nodularity is noted. Impression: 1. Bibasilar haziness may be due to pulmonary edema/ airspace disease. 2. Right upper lobe minimal scarring and 4 mm nodular lesion, please compare with prior studies to assess stability. Electronically signed on Mar 20, 2018 8:06:02 PM CDT by: Nadia AMADOR
[2018-03-21 07:56] LABS: APPEARANCE,URINE CLEAR (CLEAR); COLOR,URINE YELLOW (YELLOW); OCCULT BLOOD,URINE NEGATIVE (NEGATIVE); PH URINE 5.5 (5.0 - 8.0); UROBILINOGEN URINE 0.2 Eu (0.2-1.0)
== END 2018-03-20 21:00 | disposition home or self-care (01) ==
LOC: ED 18:36
DX: R51 Headache (principal); R06.02 Shortness of breath
CPT/HCPCS: 70450; 71045; 80053; 81002; 84484; 85025; S1016

== ENCOUNTER 2018-06-07 18:45 | Emergency (ER) | payer MEDICARE, OTHER ==
--- NOTE | 2018-06-07 19:08 | ED Physician Documentation ---
Female Urogenital Problems - HPI Stated Complaint: painful urination Chief Complaint: Female Urogenital Problems Additional Information: Patient presents to ED with a 2 day history of urinary frequency, painful urination and fever (102.). Patient states she has a history of renal stones but it has been a long time ago. Onset: days ago (2) Severity: moderate Location of Pain: abdominal pain (suprapubic) Further Comments: no - Associated Symptoms Urinary Symptoms: blood in urine, frequent urination, pain w/ urination - ROS CONST: fever, chills GI/: nausea CVS/RESP: denies: chest pain, shortness of breath EYES/ENT: denies: sore throat NEURO/PSYCH: denies: headache MS/SKIN/LYMPH: denies: joint pain, rash, swollen glands - PAST HX Past History: none Other History: kidney stone(s), bladder infection Surgeries/Procedures: none Allergies/Adverse Reactions: Allergies Allergy/AdvReac Type Severity Reaction Status Date / Time Penicillins Allergy Severe Anaphylaxis Verified 06/07/18 19:58 Sulfa (Sulfonamide Allergy Intermediate Rash Verified 06/07/18 19:58 Antibiotics) Home Medications: Ambulatory Orders Medication Instructions Recorded Levothyroxine Sodium [Synthroid] 150 mcg PO D 06/30/16 Sertraline HCl [Zoloft] 200 mg PO D 06/30/16 Zolpidem Tartrate [Ambien] 10 mg PO PRN PRN 06/30/16 Albuterol Sulfate [ProAir 1 puff INH Q4 PRN 06/07/17 RespiClick] Alprazolam [Xanax] 0.25 mg PO DIRECTED 06/07/17 Hydrochlorothiazide 1 tab PO BID 03/20/18 Potassium Chloride [Klor-Con M20] 10 meq PO BID 03/20/18 Acetaminophen with Codeine 1 tab PO PRN PRN 06/07/18 [Acetaminophen-Cod #3 Tablet] Ciprofloxacin HCl [Cipro] 500 mg PO BID #14 tablet 06/07/18 Cyanocobalamin (Vitamin B-12) 1,000 mcg PO D 06/07/18 [Vitamin B-12] Pantoprazole Sodium [Protonix] 40 mg PO BID 06/07/18 - SOCIAL HX Smoking History: non-smoker Alcohol Use: none Drug Use: none - FAMILY HX Family History: none - VITAL SIGNS Vital Signs: Vital Signs Temp Pulse Resp BP Pulse Ox 125/81 03/20/18 21:00 - REVIEWED ASSESSMENTS Nursing Assessment Reviewed: Yes Vitals Reviewed: Yes ED Results Lab/Radiology - Lab Results Lab Results: UA Blood +2, Leukocytes +1, Nitrate negative. - Radiology Radiology Impressions: CT abdomen pelvis without contrast. History: Right flank pain Technique: Transaxial computed tomographic images of the abdomen pelvis were obtained without the use of intravenous contrast according to standard protocol. Findings: The lung bases are clear. The heart size is normal. Liver is normal in density. The gallbladder is absent. The pancreas spleen adrenals and bilateral kidneys are normal. There is no calculus or hydronephrosis. There is no bowel wall thickening or dilation identified. The appendix is surgically absent. There is atherosclerosis of the aorta. No retroperitoneal adenopathy. There is mild increased density within the mid mesenteric fat most consistent with mild mesenteric panniculitis and is likely of no clinical significance. There is evidence of previous right sided hernia repair. The bladder is normal. There is no free fluid. There is mild degenerative change in the lower lumbar spine. Impression: 1. No bowel wall thickening or dilation. 2. Small hiatal hernia. 3. Status post cholecystectomy. 4. Additional findings include atherosclerosis, lumbar spondylosis and mild mesenteric panniculitis. Electronically signed on Jun 07, 2018 8:05:09 PM ENVIR[employer]MENT[employer] E[employer]OMIST by: Steve Birch - Orders Orders: ED Orders Category Date Time Status CBC/PLATELET/DIFF Routine Lab 06/07/18 Ordered CMP Routine Lab 06/07/18 Ordered UA W/MICRO IF INDICATED Routine Lab 06/07/18 19:06 Ordered Female Urogenital Problems - EXAM General Appearance: no acute distress, alert EENT: REESE Neck: nml inspection Respiratory: no resp. distress, breath sounds nml CVS: reg rate & rhythm, heart sounds normal Abdomen: tenderness (suprapubic), other (soft) Back: CVA tenderness (right) Skin: color nml, no rash, warm,dry Extremities: non-tender, no edema Neuro: oriented X3 Discharge Clincal Impression: Acute cystitis with hematuria Prescriptions: Ciprofloxacin HCl [Cipro] 500 mg PO BID #14 tablet Referrals: Angie Medel MD [Primary Care Provider] - 2 Days Condition: Stable Disposition: 01 HOME, SELF-CARE Decision to Admit: NO Date of Decison to Admit: 06/07/18 Decision Time: 23:00
[2018-06-07] MEDS ORDERED: cefTRIAXone SODIUM 1 GM in 0.9 % SODIUM CHLORIDE 50 ML IV ONE (20:08)
[2018-06-07] MEDS ORDERED: cefTRIAXone SODIUM 1 GM VIAL IM ONE (20:16)
[2018-06-07] MEDS ORDERED: Lidocaine 1% 5ml(IM or SUTURE)(PAIN CLINIC) IVP ONE (20:16)
--- NOTE | 2018-06-07 20:39 | Diagnostic Imaging Report ---
ANNIKA LAINEZ [facility] [address] [facility] [address] [place], [place]. 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 History: Right flank pain Technique: Transaxial computed tomographic images of the abdomen pelvis were obtained without the use of intravenous contrast according to standard protocol. Findings: The lung bases are clear. The heart size is normal. Liver is normal in density. The gallbladder is absent. The pancreas spleen adrenals and bilateral kidneys are normal. There is no calculus or hydronephrosis. There is no bowel wall thickening or dilation identified. The appendix is surgically absent. There is atherosclerosis of the aorta. No retroperitoneal adenopathy. There is mild increased density within the mid mesenteric fat most consistent with mild mesenteric panniculitis and is likely of no clinical significance. There is evidence of previous right sided hernia repair. The bladder is normal. There is no free fluid. There is mild degenerative change in the lower lumbar spine. Impression: 1. No bowel wall thickening or dilation. 2. Small hiatal hernia. 3. Status post cholecystectomy. 4. Additional findings include atherosclerosis, lumbar spondylosis and mild mesenteric panniculitis. Electronically signed on Jun 07, 2018 8:05:09 PM HAND HEEL SEAT FITTER by: Steve AMADOR
[2018-06-07 22:43] VITALS: BP 128/68
[2018-06-08 07:56] LABS: APPEARANCE,URINE CLOUDY (CLEAR); COLOR,URINE YELLOW (YELLOW); OCCULT BLOOD,URINE 2+ (NEGATIVE); PH URINE 5.5 (5.0 - 8.0); UROBILINOGEN URINE 0.2 Eu (0.2-1.0)
== END 2018-06-07 21:05 | disposition home or self-care (01) ==
LOC: ED 18:45
DX: N30.01 Acute cystitis with hematuria (principal)
CPT/HCPCS: 74176; 81002; 87086; 96372; 99283; J0696; 80053

== ENCOUNTER 2018-07-27 16:25 | Emergency (ER) | payer MEDICARE, OTHER ==
[2018-07-27] MEDS ORDERED: 0.9 % SODIUM CHLORIDE 1,000 ML IV ONE (16:50)
--- NOTE | 2018-07-27 16:51 | ED Physician Documentation ---
General Adult - HISTORIAN Historian: patient - HPI Stated Complaint: "pain all over" Chief Complaint: General Adult Onset: days ago Timing: still present Severity: moderate Further Comments: yes (Pt is a 62 yo female with c/o "all over muscle pain." She denies other sx. No sore throat, no sob, no chest pain, no dysuria, no cough, no diarrhea.) - ROS CONST: other ("all over muscle pain") EYES/ENT: none CVS/RESP: none GI/: none MS/SKIN/LYMPH: none - PAST HX Past History: other (Hypothyroidism, Depression/Anxiety, GERD, B-12 def) Surgeries/Procedures: other (hernia repair, ortho surgery) Allergies/Adverse Reactions: Allergies Allergy/AdvReac Type Severity Reaction Status Date / Time Penicillins Allergy Severe Anaphylaxis Verified 07/27/18 16:48 Sulfa (Sulfonamide Allergy Intermediate Rash Verified 07/27/18 16:48 Antibiotics) Home Medications: Ambulatory Orders Medication Instructions Recorded Levothyroxine Sodium [Synthroid] 150 mcg PO D 06/30/16 Sertraline HCl [Zoloft] 200 mg PO D 06/30/16 Zolpidem Tartrate [Ambien] 10 mg PO PRN PRN 06/30/16 Albuterol Sulfate [ProAir 1 puff INH Q4 PRN 06/07/17 RespiClick] Alprazolam [Xanax] 0.25 mg PO DIRECTED 06/07/17 Hydrochlorothiazide 1 tab PO BID 03/20/18 Potassium Chloride [Klor-Con M20] 10 meq PO BID 03/20/18 Acetaminophen with Codeine 1 tab PO PRN PRN 06/07/18 [Acetaminophen-Cod #3 Tablet] Ciprofloxacin HCl [Cipro] 500 mg PO BID #14 tablet 06/07/18 Cyanocobalamin (Vitamin B-12) 1,000 mcg PO D 06/07/18 [Vitamin B-12] Pantoprazole Sodium [Protonix] 40 mg PO BID 06/07/18 - SOCIAL HX Smoking History: non-smoker - FAMILY HX Family History: No - VITAL SIGNS Vital Signs: Vital Signs Temp Pulse Resp BP Pulse Ox 128/68 06/07/18 22:41 - REVIEWED ASSESSMENTS Nursing Assessment Reviewed: Yes Vitals Reviewed: Yes Progress - Progress Progress: NS 1 L IVF Toradol 30 mg IV ESR - pending Diazepam 5 mg po moderate improvement Rx Flexeril 5 mg, 1-2 po q 8 hr prn, disp 30 General Adult Physical Exam - PHYSICAL EXAM GENERAL APPEARANCE: moderate distress EENT: pharynx normal NECK: normal inspection, thyroid normal, supple RESPIRATORY: no resp distress, chest non-tender, breath sounds normal CVS: reg rate & rhythm, heart sounds normal ABDOMEN: soft, no organomegaly, normal bowel sounds BACK: normal inspection, no CVA tenderness SKIN: warm/dry, normal color EXTREMITIES: non-tender, normal range of motion, no evidence of injury NEURO: oriented X3, motor nml, sensation nml Discharge Clincal Impression: muscle ache Referrals: Angie Medel MD [Primary Care Provider] - 2 Days Condition: Stable Disposition: 01 HOME, SELF-CARE Decision to Admit: NO Decision Time: 19:42
[2018-07-27] MEDS ORDERED: KETOROLAC TROMETHAMINE 30 MG/1ML VIAL IVP ONE (16:52)
[2018-07-27 17:00] VITALS: BP 111/68
[2018-07-27] MEDS ORDERED: DIAZEPAM 5 MG TABLET PO ONE (18:51)
[2018-07-28 07:16] LABS: eGFR (Non-African) > 60
[2018-07-28 07:17] LABS: BASOPHILS % 0.4 (0.0-1.5); EOSINOPHILS % 3.2 % (0.0-6.8); MEAN CORPUSCULAR HEMOGLOBIN 28.5 pg (28.0-34.0); MONOCYTES % 8.4 % (0.0-11.0); NEUTROPHILS # 3.9 # k/uL (1.4-7.7)
[2018-07-28 07:42] LABS: APPEARANCE,URINE CLEAR (CLEAR); COLOR,URINE YELLOW (YELLOW); OCCULT BLOOD,URINE NEGATIVE (NEGATIVE); UROBILINOGEN URINE 0.2 Eu (0.2-1.0)
[2018-07-28 16:20] LABS: CANNABINOIDS NEGATIVE ng/mL (< 50); METHYLENEDIOXYMETHAMPHETAMINE NEGATIVE ng/mL (<500)
== END 2018-07-27 19:55 | disposition home or self-care (01) ==
LOC: ED 16:25
DX: R52 Pain, unspecified (principal); E03.9 Hypothyroidism, unspecified; Z79.899 Other long term (current) drug therapy
CPT/HCPCS: 36415; 80053; 81002; 84443; 85025; 85651; 96374; 99282; 99284; G0481; J1885; J7030; 80377; S1016

== ENCOUNTER 2018-08-03 19:05 | Emergency (ER) | payer MEDICARE, OTHER ==
--- NOTE | 2018-08-03 19:24 | ED Physician Documentation ---
General Adult - HISTORIAN Historian: patient - PAST HX Allergies/Adverse Reactions: Allergies Allergy/AdvReac Type Severity Reaction Status Date / Time Penicillins Allergy Severe Anaphylaxis Verified 07/27/18 16:48 Sulfa (Sulfonamide Allergy Intermediate Rash Verified 07/27/18 16:48 Antibiotics) Home Medications: Ambulatory Orders Medication Instructions Recorded Levothyroxine Sodium [Synthroid] 150 mcg PO D 06/30/16 Sertraline HCl [Zoloft] 200 mg PO D 06/30/16 Zolpidem Tartrate [Ambien] 10 mg PO PRN PRN 06/30/16 Albuterol Sulfate [ProAir 1 puff INH Q4 PRN 06/07/17 RespiClick] Alprazolam [Xanax] 0.25 mg PO DIRECTED 06/07/17 Hydrochlorothiazide 1 tab PO BID 03/20/18 Potassium Chloride [Klor-Con M20] 10 meq PO BID 03/20/18 Acetaminophen with Codeine 1 tab PO PRN PRN 06/07/18 [Acetaminophen-Cod #3 Tablet] Ciprofloxacin HCl [Cipro] 500 mg PO BID #14 tablet 06/07/18 Cyanocobalamin (Vitamin B-12) 1,000 mcg PO D 06/07/18 [Vitamin B-12] Pantoprazole Sodium [Protonix] 40 mg PO BID 06/07/18 - VITAL SIGNS Vital Signs: Vital Signs Temp Pulse Resp BP Pulse Ox 111/68 07/27/18 19:45 Discharge Referrals: Angie Medel MD [Primary Care Provider] - 2 Days
[2018-08-03 19:51] VITALS: BP 128/52
== END 2018-08-03 20:15 ==
LOC: ED 19:05
DX: Z53.21 Procedure and treatment not carried out due to patient leaving prior to being seen by health care provider (principal)